=== PATIENT | male | born 1990 | race Caucasian/White ===

== ENCOUNTER 2023-10-20 10:00 | Emergency (ER) | payer OTHER ==
[~2023-10-20] VITALS: Ht 190.5 cm; Wt 160.0 kg
[2023-10-20 10:04] VITALS: O2SAT 98
[2023-10-20 10:26] LABS: BASOPHILS % 0.6 % (0.0-2.0); EOSINOPHILS % 1.4 % (0.0-5.0); HEMATOCRIT. 45.7 % (42.0-52.0); HEMOGLOBIN. 15.3 g/dL (14.0-18.0); LYMPHOCYTES % 26.5 % (20.0-50.0); MEAN CORPUSCULAR HEMOGLOBIN 27.6 pg (28.0-32.0); MEAN CORPUSCULAR HGB CONC 33.4 g/dL (31.0-37.0); MEAN CORPUSCULAR VOLUME 82.4 fL (80.0-94.0); MEAN PLATELET VOLUME 7.9 fl (7.4-10.4); MONOCYTES % 7.7 % (2.0-8.0); NEUTROPHILS % 63.8 % (40.0-76.0); PLATELET 247 x1000/uL (130-400); RED BLOOD CELL COUNT 5.54 mill/uL (4.7-6.1); RED CELL DISTRIBUTION WIDTH 15.6 % (11.6-14.6); WHITE BLOOD COUNT 8.9 x1000/uL (4.5-11.0)
[2023-10-20 10:38] LABS: CHLORIDE 105 mEq/L (98-107); POTASSIUM 3.5 mEq/L (3.5-5.1); SODIUM 139 mEq/L (136-145)
[2023-10-20 10:39] LABS: CARBON DIOXIDE 25 mEq/L (21-32)
[2023-10-20 10:40] LABS: CALCIUM 9.5 mg/dL (8.7-10.4)
[2023-10-20 10:44] LABS: CREATININE 0.9 mg/dL (0.6-1.3); GLUCOSE 131 mg/dL (70-105)
[2023-10-20 10:45] LABS: UREA NITROGEN BLOOD 11 mg/dL (9-23)
[2023-10-20 10:50] LABS: TROPONIN I HIGH SENSITIVITY < 4 ng/L (3.0-53)
[2023-10-20 10:54] LABS: CLARITY URINE CLEAR (CLEAR); COLOR URINE YELLOW (YELLOW); GLUCOSE URINE NEGATIVE (NEGATIVE); KETONES URINE NEGATIVE (NEGATIVE); LEUKOCYTE ESTERASE URINE NEGATIVE (NEGATIVE); NITRITE URINE NEGATIVE (NEGATIVE); OCCULT BLOOD URINE NEGATIVE (NEGATIVE); PH URINE 6.5 (4.5-8.0); PROTEIN URINE TRACE (NEGATIVE)
[2023-10-20 11:14] LABS: RBC URINE 0-2 /hpf (0-2); SQUAMOUS EPITHELIAL CELL URINE FEW /lpf (RARE/1+); WBC URINE 0-2 /hpf (0-2); YEAST URINE NONE SEEN
[2023-10-20 11:15] LABS: BACTERIA URINE RARE
[2023-10-20 13:15] LABS: TROPONIN I HIGH SENSITIVITY < 4 ng/L (3.0-53)
[2023-10-20 13:42] VITALS: BP 135/81; PULSE 72; RESP 16; TEMP 98.2
== END 2023-10-20 13:45 | disposition home or self-care (01) ==
LOC: ER 10:00
DX: R00.2 Palpitations (principal); R07.89 Other chest pain
CPT/HCPCS: 80048; 81003; 83880; 85025; 84484; 36415; 71045; 93005; 99285; Z7610 ×2